=== PATIENT | male | born 1990 | race Caucasian/White ===

== ENCOUNTER → 2018-05-18 00:19 | Emergency (ER) | payer BC ==
[~2018-05-18 00:19] MED LIST: Ibuprofen TAB* 600 MG PO ONE; NS 0.9% 1000 ML** 1,000 ML IV ONE; Ondansetron INJ* 2 MG/ML VIAL IV ONE
[2018-05-18 02:22] LABS: ABS Basophils 0 10^3/ul (0-0.2); ABS Eosinophils 0 10^3/ul (0-0.6); ABS Lymphocytes 0.7 10^3/ul (1.0-4.8); ABS Neutrophils 3.9 10^3/ul (1.5-7.7); ABS Nucleated RBC 0 10^3/ul; Eosinophil % 0.2 %; Hematocrit 44 % (36-46); Hemoglobin 15.1 g/dL (14.0-18.0); Mean Corpuscular HGB Conc 34 g/dL (31-36); Mean Corpuscular Hemoglobin 30 pg (27-31); Mean Corpuscular Volume 88 fL (80-94); Mean Platelet Volume 8.3 fL (7.4-10.4); Nucleated Red Blood Cells % 0; Platelet Count 167 10^3/uL (150-450); Red Blood Count 5.03 10^6 /uL (4.18-5.48); Red Cell Distribution Width 13 % (10.5-15); White Blood Count 5.6 10^3/uL (3.5-10.8)
[2018-05-18 02:29] LABS: INR 0.97 (0.77-1.02)
[2018-05-18 02:38] LABS: Albumin 4.6 g/dL (3.2-5.2); Albumin/Globulin Ratio 1.9 (1-3); BUN/Creatinine Ratio 12.2 (8-20); C Reactive Protein 46.17 mg/L (<8.01); Calcium 9.5 mg/dL (8.6-10.3); EGFR Non-African American 75.2 (>60); Globulin 2.4 g/dL (2-4); Total Bilirubin 0.4 mg/dL (0.2-1.0)
--- NOTE | 2018-05-18 02:58 | ED ---
Influenza-Like Illness - HPI Summary HPI Summary: Patient complains of flulike symptoms, weakness, SOB, SMART, body aches, lightheadedness, cough starting this morning. Patient went to urgent care was evaluated and sent to the ED for inverted T waves on EKG. Patient was negative for flu at urgent care. Patient states he took NyQuil at 7 PM. No active headache here in the ED. Denies fever, sore throat, neck stiffness, CP, N/V/D, abdominal pain, change in urine, change in BM. Medical history is none. - History of Current Complaint Chief Complaint: EDDysrhythmPalp Time Seen by Provider: 05/18/18 02:05 Hx Obtained From: Patient Onset/Duration: Gradual Onset, Lasting Hours Severity: Moderate Associated Signs & Symptoms: Myalgia, Cough, Headache - Allergy/Home Medications Allergies/Adverse Reactions: Allergies Allergy/AdvReac Type Severity Reaction Status Date / Time No Known Allergies Allergy Verified 05/18/18 00:32 Home Medications: Home Medications NK [No Home Medications Reported] 05/18/18 [History Confirmed 05/18/18] PMH/Surg Hx/FS Hx/Imm Hx Endocrine/Hematology History: Denies: Hx Anticoagulant Therapy Cardiovascular History: Reports: Hx Hypertension - when younger History: Denies: Hx Dialysis Sensory History: Denies: Hx Eye Prosthesis Opthamlomology History: Denies: Hx Legally Blind EENT History: Denies: Hx Deafness Neurological History: Denies: Hx Dementia Psychiatric History: Denies: Hx Autism - Surgical History Surgery Procedure, Year, and Place: tonsils Infectious Disease History: No Infectious Disease History: Denies: Traveled Outside the [place] in Last 30 Days - Family History Known Family History: Positive: Cardiac Disease - GRANDMOTHER, Hypertension, Non -Contributory - Social History Alcohol Use: Weekly Substance Use Type: Reports: None Smoking Status (MU): Current Some Day Smoker Type: Pipe Review of Systems Positive: Chills Eyes: Negative ENT: Negative Cardiovascular: Negative Positive: Shortness Of Breath, Cough Gastrointestinal: Negative Genitourinary: Negative Positive: Myalgia Skin: Negative Positive: Headache Psychological: Normal All Other Systems Reviewed And Are Negative: Yes Physical Exam Triage Information Reviewed: Yes Vital Signs On Initial Exam: Initial Vitals Temp Pulse Resp BP Pulse Ox 99.5 F 121 16 130/93 98 05/18/18 00:26 05/18/18 00:26 05/18/18 00:26 05/18/18 00:26 05/18/18 00:26 Vital Signs Reviewed: Yes Appearance: Positive: Well-Appearing Skin: Positive: Warm Head/Face: Positive: Normal Head/Face Inspection Eyes: Positive: Normal ENT: Positive: Normal ENT inspection Neck: Positive: Supple Respiratory/Lung Sounds: Positive: Clear to Auscultation Cardiovascular: Positive: Normal Abdomen Description: Positive: Nontender Musculoskeletal: Positive: Normal Neurological: Positive: Normal Psychiatric: Positive: Normal AVPU Assessment: Alert - [place] Coma Scale Best Eye Response: 4 - Spontaneous Best Motor Response: 6 - Obeys Commands Best Verbal Response: 5 - Oriented Coma Scale Total: 15 Diagnostics - Vital Signs Vital Signs Temp Pulse Resp BP Pulse Ox 05/18/18 00:26 99.5 F 121 16 130/93 98 - Laboratory Lab Results: Lab Results 05/18/18 05/18/18 05/18/18 Range/Units 02:11 02:11 02:11 WBC 5.6 (3.5-10.8) 10^3/uL RBC 5.03 (4.18-5.48) 10^6 /uL Hgb 15.1 (14.0-18.0) g/dL Hct 44 (36-46) % MCV 88 (80-94) fL MCH 30 (27-31) pg MCHC 34 (31-36) g/dL RDW 13 (10.5-15) % Plt Count 167 (150-450) 10^3/uL MPV 8.3 (7.4-10.4) fL Neut % (Auto) 69.4 % Lymph % (Auto) 13.0 % [place] % (Auto) 17.1 % Eos % (Auto) 0.2 % Baso % (Auto) 0.3 % Absolute Neuts (auto) 3.9 (1.5-7.7) 10^3/ul Absolute Lymphs (auto) 0.7 L (1.0-4.8) 10^3/ul Absolute Monos (auto) 1.0 H (0-0.8) 10^3/ul Absolute Eos (auto) 0 (0-0.6) 10^3/ul Absolute Basos (auto) 0 (0-0.2) 10^3/ul Absolute Nucleated RBC 0 10^3/ul Nucleated RBC % 0 INR (Anticoag Therapy) 0.97 (0.77-1.02) D-Dimer, Quantitative < 200 (Less Than 230) ng/mL Sodium 136 (135-145) mmol/L Potassium 4.0 (3.5-5.0) mmol/L Chloride 103 (101-111) mmol/L Carbon Dioxide 28 (22-32) mmol/L Anion Gap 5 (2-11) mmol/L BUN 14 (6-24) mg/dL Creatinine 1.15 (0.67-1.17) mg/dL Est GFR ( Amer) 91.0 (>60) Est GFR (Non-Af Amer) 75.2 (>60) BUN/Creatinine Ratio 12.2 (8-20) Glucose 112 H (70-100) mg/dL Calcium 9.5 (8.6-10.3) mg/dL Magnesium 2.0 (1.9-2.7) mg/dL Total Bilirubin 0.40 (0.2-1.0) mg/dL AST 14 (13-39) U/L ALT 17 (7-52) U/L Alkaline Phosphatase 63 (34-104) U/L Troponin I 0.00 (<0.04) ng/mL C-Reactive Protein 46.17 H (<8.01) mg/L Total Protein 7.0 (6.4-8.9) g/dL Albumin 4.6 (3.2-5.2) g/dL Globulin 2.4 (2-4) g/dL Albumin/Globulin Ratio 1.9 (1-3) TSH Pending Result Diagrams: 05/18/18 02:11 05/18/18 02:11 Lab Statement: Any lab studies that have been ordered have been reviewed, and results considered in the medical decision making process. Flu Symptom Course/Dx - Course Course Of Treatment: Patient complains of flulike symptoms, weakness, SOB, SMART, body aches, lightheadedness, cough starting this morning. Patient went to urgent care was evaluated and sent to the ED for inverted T waves on EKG. Patient was negative for flu at urgent care. Patient states he took NyQuil at 7 PM. No active headache here in the ED. Denies fever, sore throat, neck stiffness, CP, N/V/D, abdominal pain, change in urine, change in BM. Medical history is none. Physical exam unremarkable. Low-grade fever 100.4. Mildly tachycardic. WBC normal. CRP 46. Labs otherwise unremarkable. Chest x-ray negative for acute process. EKG minor ST depression in lead 1, T wave inversion in lead 3, otherwise unremarkable sinus rhythm. D-dimer negative. Troponin is negative. Diagnosis viral syndrome. Follow up with cardiology. Patient understands and approves of plan. - Diagnoses Provider Diagnoses: Viral syndrome Discharge - Sign-Out/Discharge Documenting (check all that apply): Patient Departure Patient Received Moderate/Deep Sedation with Procedure: No - Discharge Plan Condition: Stable Disposition: HOME Patient Education Materials: Viral Syndrome (ED) Referrals: No Primary Care MichaelNOPCP [Primary Care Provider] - Additional Instructions: Follow up with cardiology Dr. Chiu for further evaluation of inverted T waves. Alternate ibuprofen 600 mg of Tylenol 650 mg for control of body aches, headache and fever. Drink plenty of fluids. Rest. Follow-up with primary care. - Billing Disposition and Condition Condition: STABLE Disposition: Home
[2018-05-18 03:23] LABS: TSH (Thyroid Stimulating Horm) 0.96 mcIU/mL (0.34-5.60)
[2018-05-18 03:57] VITALS: BP 129/79
== END | disposition home or self-care (01) ==
LOC: ED 00:19
DX: B34.9 Viral infection, unspecified (principal); R06.02 Shortness of breath; R00.0 Tachycardia, unspecified; Z72.0 Tobacco use
CPT/HCPCS: 36415; 71046; 80053; 83735; 84443; 84484; 85025; 85379; 85610; 86140; 93005; 99283; A9270-GY